=== PATIENT | male | born 1980 | race African-American/Black ===

== ENCOUNTER 2018-08-04 12:31 | Emergency (ER) | payer MEDICAID ==
[~2018-08-04] VITALS: Ht 172.7 cm; Wt 62.0 kg
[2018-08-04] MEDS ORDERED: SODIUM CHLORIDE 0.9% 1,000 ML IV ONE (20:54)
[2018-08-04] MEDS ORDERED: ONDANSETRON HCL 4MG/2ML INJ IV STA (20:54)
[2018-08-04] MEDS ORDERED: MECLIZINE 25MG TABLET PO ONE (21:00)
[2018-08-04 21:32] VITALS: BP 136/73
== END 2018-08-04 22:14 | disposition home or self-care (01) ==
LOC: ER 12:31
DX: R11.0 Nausea (principal); R42 Dizziness and giddiness; F17.200 Nicotine dependence, unspecified, uncomplicated
CPT/HCPCS: 96361; 96374; 99283; J2405; J7030; J8597